=== PATIENT | male | born 1965 | race Hispanic/Latino ===

== ENCOUNTER 2020-09-08 21:53 | Emergency (ER) | payer OTHER ==
[2020-09-08] MEDS ORDERED: KETOROLAC TROMETHAMINE 30MG/ML ONE (22:05)
[2020-09-08] MEDS ORDERED: DIAZEPAM 5 MG TABLET ONE (22:05)
[2020-09-08] MEDS ORDERED: LIDOCAINE 5% TOPICAL PATCH TP ONE (22:05)
== END 2020-09-08 22:34 | disposition home or self-care (01) ==
LOC: EDH 21:53
DX: S39.012A Strain of muscle, fascia and tendon of lower back, initial encounter (principal); X58.XXXA Exposure to other specified factors, initial encounter; Y93.89 Activity, other specified; Y92.89 Other specified places as the place of occurrence of the external cause; Y99.8 Other external cause status
CPT/HCPCS: 96372; 99283; J1885

== ENCOUNTER → 2021-02-23 | Outpatient (CLI) | payer OTHER | END | disposition home or self-care (01) | LOC: OIH 15:24 | PROVIDERS: ATTEND Family Medicine | DX: M51.27 Other intervertebral disc displacement, lumbosacral region (principal); M47.816 Spondylosis without myelopathy or radiculopathy, lumbar region; M43.27 Fusion of spine, lumbosacral region | CPT/HCPCS: 72100 ==